=== PATIENT | female | born 1985 | race Caucasian/White ===

== ENCOUNTER 2018-02-19 18:37 | Emergency (ER) | payer BC ==
[2018-02-19 19:26] LABS: ABS Basophils 0.1 10^3/ul (0-0.2); ABS Eosinophils 0.1 10^3/ul (0-0.6); ABS Lymphocytes 2.9 10^3/ul (1.0-4.8); ABS Monocytes 0.3 10^3/ul (0-0.8); ABS Neutrophils 4.2 10^3/ul (1.5-7.7); ABS Nucleated RBC 0 10^3/ul; Eosinophil % 1.2 % (0-6); Hematocrit 42 % (35-47); Hemoglobin 14.3 g/dl (12.0-16.0); Lymphocyte % 38.8 % (25-47); Mean Corpuscular HGB Conc 34 g/dl (31-36); Mean Corpuscular Hemoglobin 31 pg (27-31); Mean Corpuscular Volume 91 fL (80-97); Mean Platelet Volume 8.6 um3 (7.4-10.4); Nucleated Red Blood Cells % 0.1; Platelet Count 198 10^3/ul (150-450); Red Blood Count 4.58 10^6/ul (4.00-5.40); Red Cell Distribution Width 12 % (10.5-15); White Blood Count 7.5 10^3/ul (3.5-10.8)
[2018-02-19 19:49] LABS: EGFR Non-African American 64.4 (>60)
[2018-02-19] MEDS ORDERED: Ketorolac INJ* 30 MG/ML 1 ML VIAL IM ONE (20:13)
--- NOTE | 2018-02-19 20:13 | ED ---
GI/ HPI - HPI Summary HPI Summary: 32 female presents with left upper quadrant pain for the past day. She states she may have injured it. She denies any chest pain or shortness breath. She is not on control. No recent travel. No family history of blood clots. She denies any palpitations. She states the pain is sharp. She denies any change with food. She denies any blood in her stool. She was to nausea but denies any vomiting. She states the pain is worse with movement. She tried ibuprofen with minimal relief. She denies any diarrhea constipation. No pains urination. No flank pain. Pain does not radiate anywhere. - History of Current Complaint Chief Complaint: EDAbdPain Time Seen by Provider: 02/19/18 19:28 Stated Complaint: ABD PAIN Pain Intensity: 4 - Allergy/Home Medications Allergies/Adverse Reactions: Allergies Allergy/AdvReac Type Severity Reaction Status Date / Time Penicillins Allergy Hives Verified 02/19/18 19:47 Home Medications: Home Medications NK [No Home Medications Reported] 02/19/18 [History Confirmed 02/19/18] PMH/Surg Hx/FS Hx/Imm Hx Endocrine/Hematology History: Denies: Hx Anticoagulant Therapy Cardiovascular History: Denies: Hx Myocardial Infarction Infectious Disease History: No Infectious Disease History: Denies: Traveled Outside the [place] in Last 30 Days - Family History Known Family History: Negative: Renal Disease - Social History Alcohol Use: Occasionally Substance Use Type: Reports: None Smoking Status (MU): Never Smoked Tobacco Review of Systems Negative: Fever Negative: Chest Pain Negative: Shortness Of Breath Positive: Abdominal Pain, Nausea. Negative: Vomiting All Other Systems Reviewed And Are Negative: Yes Physical Exam Triage Information Reviewed: Yes Vital Signs On Initial Exam: Initial Vitals Temp Pulse Resp BP Pulse Ox 98.2 F 74 16 130/84 98 02/19/18 18:41 02/19/18 18:41 02/19/18 18:41 02/19/18 18:41 02/19/18 18:41 Vital Signs Reviewed: Yes Appearance: Positive: Well-Appearing Skin: Positive: Warm, Dry Head/Face: Positive: Normal Head/Face Inspection Eyes: Positive: Normal, Conjunctiva Clear ENT: Positive: Pharynx normal Respiratory/Lung Sounds: Positive: Clear to Auscultation, Breath Sounds Present Cardiovascular: Positive: Normal, RRR Abdomen Description: Positive: Soft, Other: - Pinpoint tenderness left upper quadrant, nontender ribs, carnett sign pos Bowel Sounds: Positive: Present Musculoskeletal: Positive: Normal Neurological: Positive: Normal Psychiatric: Positive: Normal Diagnostics - Vital Signs Vital Signs Temp Pulse Resp BP Pulse Ox 02/19/18 20:01 70 138/76 98 02/19/18 20:00 77 99 02/19/18 18:41 98.2 F 74 16 130/84 98 - Laboratory Lab Results: Lab Results 02/19/18 02/19/18 Range/Units 19:17 19:17 WBC 7.5 (3.5-10.8) 10^3/ul RBC 4.58 (4.00-5.40) 10^6/ul Hgb 14.3 (12.0-16.0) g/dl Hct 42 (35-47) % MCV 91 (80-97) fL MCH 31 (27-31) pg MCHC 34 (31-36) g/dl RDW 12 (10.5-15) % Plt Count 198 (150-450) 10^3/ul MPV 8.6 (7.4-10.4) um3 Neut % (Auto) 55.1 (38-83) % Lymph % (Auto) 38.8 (25-47) % Williamson % (Auto) 4.1 (0-7) % Eos % (Auto) 1.2 (0-6) % Baso % (Auto) 0.8 (0-2) % Absolute Neuts (auto) 4.2 (1.5-7.7) 10^3/ul Absolute Lymphs (auto) 2.9 (1.0-4.8) 10^3/ul Absolute Monos (auto) 0.3 (0-0.8) 10^3/ul Absolute Eos (auto) 0.1 (0-0.6) 10^3/ul Absolute Basos (auto) 0.1 (0-0.2) 10^3/ul Absolute Nucleated RBC 0 10^3/ul Nucleated RBC % 0.1 Sodium 140 (135-145) mmol/L Potassium 4.3 (3.5-5.0) mmol/L Chloride 105 (101-111) mmol/L Carbon Dioxide 27 (22-32) mmol/L Anion Gap 8 (2-11) mmol/L BUN 13 (6-24) mg/dL Creatinine 1.01 H (0.51-0.95) mg/dL Est GFR ( Amer) 77.9 (>60) Est GFR (Non-Af Amer) 64.4 (>60) BUN/Creatinine Ratio 12.9 (8-20) Glucose 114 H (70-100) mg/dL Calcium 9.3 (8.6-10.3) mg/dL Total Bilirubin 0.30 (0.2-1.0) mg/dL AST 10 L (13-39) U/L ALT 8 (7-52) U/L Alkaline Phosphatase 58 (34-104) U/L C-Reactive Protein 1.39 (<8.01) mg/L Total Protein 7.0 (6.4-8.9) g/dL Albumin 4.5 (3.2-5.2) g/dL Globulin 2.5 (2-4) g/dL Albumin/Globulin Ratio 1.8 (1-3) Lipase 17 (11.0-82.0) U/L Beta HCG, Quant < 0.60 mIU/mL Result Diagrams: 02/19/18 19:17 02/19/18 19:17 Lab Statement: Any lab studies that have been ordered have been reviewed, and results considered in the medical decision making process. GIGU Course/Dx - Course Course Of Treatment: 32 female presents with left upper quadrant pain for the past day. She states she may have injured it. She denies any chest pain or shortness breath. She is not on control. No recent travel. No family history of blood clots. She denies any palpitations. She states the pain is sharp. She denies any change with food. She denies any blood in her stool. She was to nausea but denies any vomiting. She states the pain is worse with movement. She tried ibuprofen with minimal relief. She denies any diarrhea constipation. No pains urination. No flank pain. Pain does not radiate anywhere. Exam has point tenderness left upper quadrant. Nontender chest wall. Positive carnett sign. Labs within normal limits. Could be gastritis versus muscular. We will try Tums and ibuprofen. Patient understands agrees with plan. - Diagnoses Differential Diagnoses - Female: Esophagitis/Gastritis, Other - muscle wall, PE Provider Diagnoses: Abdominal pain Discharge - Sign-Out/Discharge Documenting (check all that apply): Patient Departure - Discharge Plan Condition: Good Disposition: HOME Patient Education Materials: Acute Abdominal Pain (ED) Referrals: Fredis Alberts MD [Primary Care Provider] - Additional Instructions: Take Tylenol or ibuprofen every 6 hours as needed for pain Can try tums Follow up with primary care physician within 5 days Return to ED if develop any new or worsening symptoms - Billing Disposition and Condition Condition: GOOD Disposition: Home
[2018-02-19 20:35] VITALS: BP 130/82
[2018-02-19 20:36] LABS: Urine Appearance Cloudy; Urine Blood Negative (Negative); Urine Color Yellow; Urine Ketones Negative (Negative); Urine Protein Negative (Negative); Urine Red Blood Cell Absent (Absent); Urine Specific Gravity 1.006 (1.010-1.030); Urine Urobilinogen Negative (Negative); Urine White Blood Cell Trace(0-5/hpf) (Absent)
== END 2018-02-19 20:30 | disposition home or self-care (01) ==
LOC: ED 18:37
DX: R10.12 Left upper quadrant pain (principal); R11.0 Nausea; Z88.0 Allergy status to penicillin
CPT/HCPCS: 36415; 80053; 81003; 81015; 83690; 84702; 85025; 86140; 87086; 96372; 99283; J1885

== ENCOUNTER 2019-07-30 19:17 | Emergency (ER) | payer BC ==
[2019-07-30 19:32] VITALS: BP 145/91
--- NOTE | 2019-07-30 20:04 | UC ---
Respiratory Complaint HPI - HPI Summary HPI Summary: 3 DAYS OF COUGH, CONGESTION, SORE THROAT AND CHILLS. NO FEVER. DAUGHTER DIAGNOSED WITH STREP TODAY. - History of Current Complaint Chief Complaint: UCGeneralIllness Stated Complaint: THROAT PAIN Time Seen by Provider: 07/30/19 19:42 Hx Obtained From: Patient Hx Last Menstrual Period: 07/26/19 Onset/Duration: Gradual Onset, Lasting Days, Still Present Timing: Constant Severity Initially: Moderate Severity Currently: Moderate Pain Intensity: 3 Pain Scale Used: 0-10 Numeric Character: Cough: Nonproductive Aggravating Factors: Nothing Alleviating Factors: Nothing Associated Signs And Symptoms: Positive: Chills, URI, Nasal Congestion. Negative: Dyspnea, Fever, Wheezing - Allergies/Home Medications Allergies/Adverse Reactions: Allergies Allergy/AdvReac Type Severity Reaction Status Date / Time Penicillins Allergy Hives Verified 02/19/18 19:47 PMH/Surg Hx/FS Hx/Imm Hx Previously Healthy: Yes Other History Of: Negative For: Anticoagulant Therapy - Surgical History Surgical History: Yes Surgery Procedure, Year, and Place: T&A - Family History Known Family History: Positive: Non-Contributory Negative: Renal Disease - Social History Alcohol Use: Occasionally Substance Use Type: None Smoking Status (MU): Never Smoked Tobacco Review of Systems All Other Systems Reviewed And Are Negative: Yes Constitutional: Positive: Chills ENT: Positive: Sore Throat, Nasal Discharge Respiratory: Positive: Cough Cardiovascular: Positive: Negative Gastrointestinal: Positive: Negative Physical Exam Triage Information Reviewed: Yes Appearance: Well-Appearing, No Pain Distress, Well-Nourished Vital Signs: Initial Vital Signs Temp 98.5 F 07/30/19 19:28 Pulse 74 07/30/19 19:28 Resp 18 07/30/19 19:28 BP 145/91 07/30/19 19:28 Pulse Ox 100 07/30/19 19:28 Laboratory Tests 07/30/19 07/30/19 19:41 20:05 Influenza A (Rapid) Negative Influenza B (Rapid) Negative Group A Strep Rapid Negative Vital Signs Reviewed: Yes Eyes: Positive: Conjunctiva Clear ENT: Positive: Hearing grossly normal, Pharynx normal, TMs normal Neck: Positive: Supple, Nontender, No Lymphadenopathy Respiratory Exam: Normal Cardiovascular Exam: Normal Abdomen Description: Positive: Soft Musculoskeletal: Positive: No Edema Neurological: Positive: Alert Psychological: Positive: Age Appropriate Behavior Skin: Negative: Rashes Respiratory Course/Dx - Course Course Of Treatment: STREP NEGATIVE. FLU NEGATIVE. LIKELY VIRAL ETIOLOGY OF SYMPTOMS THAT SHOULD RESOLVE ON THEIR OWN WITH TIME. REST, HYDRATE, OTC MEDS NEEDED. FOLLOW-UP IF NOT IMPROVING OVER THE NEXT COUPLE OF WEEKS. - Differential Dx/Diagnosis Provider Diagnosis: Acute URI Discharge ED - Sign-Out/Discharge Documenting (check all that apply): Patient Departure All imaging exams completed and their final reports reviewed: No Studies - Discharge Plan Condition: Stable Disposition: HOME Patient Education Materials: Upper Respiratory Infection (ED) Referrals: Addis Pryor DO [Primary Care Provider] - If Needed Additional Instructions: STREP NEG. FLU NEG. YOUR SYMPTOMS ARE LIKELY VIRALLY MEDIATED AND SHOULD RESOLVE ON THEIR OWN WITH TIME. NO INDICATION FOR ANTIBIOTICS AT PRESENT. REST, HYDRATE, OTC MEDS NEEDED. SEEK FOLLOW-UP IF YOU ARE NOT IMPROVING OVER THE NEXT 1-2 WEEKS. - Billing Disposition and Condition Condition: STABLE Disposition: Home
[2019-07-30 20:17] LABS: Influenza A Molecular NEGATIVE (Negative); Influenza B Molecular NEGATIVE (Negative)
== END 2019-07-30 20:24 | disposition home or self-care (01) ==
LOC: UCEAST 19:17
DX: J06.9 Acute upper respiratory infection, unspecified (principal); J02.9 Acute pharyngitis, unspecified; Z88.0 Allergy status to penicillin
CPT/HCPCS: 87651; 99211; G0463

== ENCOUNTER 2019-08-26 16:07 | Emergency (ER) | payer BC ==
[2019-08-26 16:26] VITALS: BP 137/76
== END 2019-08-26 17:52 | disposition left against medical advice (07) ==
LOC: UCEAST 16:07
DX: Z53.21 Procedure and treatment not carried out due to patient leaving prior to being seen by health care provider (principal)

== ENCOUNTER 2023-08-29 05:35 | Observation (INO) ==
[~2023-08-29 05:35] MED LIST: Buffered Lidocaine 1% SYRIN 1 ml INTRADERM ONE
[2023-08-29] MEDS ORDERED: Chlorhexidine MOUTHWASH 0.12% 15 ML UDC ONE (05:49)
[2023-08-29] MEDS ORDERED: Scopolamine 1 mg/72hr PATCH ONE (06:02)
[2023-08-29] MEDS ORDERED: ceFAZolin 2 GM in NS PREMIX 2 GM/100 ML BAG IVPB ONE (06:03)
[2023-08-29] MEDS ORDERED: Lidocaine 2% PF 5 ML VIAL ONE (06:11)
[2023-08-29] MEDS ORDERED: Propofol 10 MG/ML 20 ML BTL ONE ×2 (06:11→07:14)
[2023-08-29] MEDS ORDERED: Midazolam 2 mg/2 ml VIAL 1 mg/ml 2 ml VIAL (2 mg) ONE (06:11)
[2023-08-29] MEDS ORDERED: Ondansetron 4 mg VIAL 2 MG/ML 2 ml VIAL ONE (06:11)
[2023-08-29] MEDS ORDERED: fentaNYL 100 mcg/2 ml 50 MCG/ML VIAL ONE (06:11)
[2023-08-29] MEDS ORDERED: Dexamethasone IV 4 MG/ML VIAL 1 ml VIAL ONE (06:11)
[2023-08-29] MEDS ORDERED: Rocuronium 50 mg VIAL 10 mg/ml 5 ml VIAL (50 mg) ONE ×2 (06:11→08:01)
[2023-08-29 06:13] LABS: Rapid COVID-19 Molecular Undetected (Undetected)
[2023-08-29] MEDS: Lactated Ringers 1000 ml BAG 1,000 ML IV SCH ×2 (06:22→10:56)
[2023-08-29] MEDS: Scopolamine 1 mg/72hr PATCH TRANSDERM ONE ×2 (06:22→10:56)
[2023-08-29] MEDS ORDERED: Lidocaine 1% w EPI 1:100,000 MDV 20 ML VIAL ONE (07:03)
[2023-08-29] MEDS ORDERED: ceFAZolin VIAL VIAL ONE (07:04)
[2023-08-29] MEDS ORDERED: Thrombin 5,000 UNITS(BOVINE) for Ultrasound Guided Pseudoaneursym ONE ×2 (07:04→07:06)
[2023-08-29] MEDS ORDERED: Gelfoam Sponge SIZE 100 SPONGE ONE (07:04)
[2023-08-29] MEDS ORDERED: Clindamycin 900 MG/50 **NS BAG 900 MG/50 ML BAG ONE (07:53)
[2023-08-29] MEDS ORDERED: Ondansetron 4 mg VIAL 2 MG/ML 2 ml VIAL IV PRN (09:13)
[2023-08-29] MEDS ORDERED: Calcium Carb (TUMS) 500 mg CHEW TAB PO PRN (09:13)
[2023-08-29] MEDS ORDERED: Senna TAB 8.6 mg TAB PO PRN (09:13)
[2023-08-29] MEDS ORDERED: Magnesium Hydroxide LIQ 30 ML UDC PO PRN (09:13)
[2023-08-29] MEDS ORDERED: Benzocaine/Menthol LOZ MT PRN (09:13)
[2023-08-29] MEDS ORDERED: Phenol 1.4% Throat Spray BTL MT PRN (09:13)
[2023-08-29] MEDS ORDERED: Dextran 70/Hypromellose Tears Eye Drops 15 ml BTL (for Artificials Tears) BOTH EYES PRN (09:13)
[2023-08-29] MEDS ORDERED: Lactated Ringers 1000 ml BAG 1,000 ML IV SCH (10:00)
[2023-08-29] MEDS: Morphine 2 MG/ML SYRINGE IV PRN ×2 (11:48→18:33)
[2023-08-30 06:04] VITALS: BP 130/66
[2023-08-30] MEDS ORDERED: Amphetamine/Dextroam ER 10(NF) 10 mg CAP.ER PO SCH (09:00)
== END 2023-08-30 11:15 | disposition home or self-care (01) ==
LOC: OR 05:35 → SSU 05:35
PROVIDERS: ADMIT Neurological Surgery; ATTEND Neurological Surgery